=== PATIENT | female | born 1995 | race Caucasian/White ===

== ENCOUNTER 2016-09-28 10:36 | Emergency (ER) | payer BC ==
[~2016-09-28] VITALS: Ht 165.1 cm; Wt 50.0 kg
[2016-09-28] VITALS (8 sets, daily range): BP systolic 116–149; BP diastolic 72–88; PULSE 92–154; RESP 16–22; TEMP 98.2; O2SAT 98–100
--- NOTE | 2016-09-28 10:56 | PD ---
HPI Chief Complaint: Chest Pain Time Seen by Provider: 10:48 Travel History International Travel<30 days: No Contact w/Intl Traveler<30days: No Traveled to known affect area: No History of Present Illness HPI 20-year-old female here for evaluation of chest pain. The patient reports that the pain started yesterday afternoon, substernal, described as sharp/pressure- like, radiates to her bilateral shoulders, worse with inspiration. She also reports feeling palpitations. No history of cardiac disease. No family history of cardiac disease. She is a nonsmoker. No history of DVT or PE. No recent travel or immobilization. She does report history of anxiety in the past and has seen a psychologist which has helped. She denies fevers, chills, cough, or recent illness. No paresthesias or motor deficits. No suicidal or homicidal ideation. PFSH Past Medical History Anxiety: Yes Diminished Hearing: No Tetanus Vaccination: Unknown Influenza Vaccination: No ?: Not LMP: SEPTEMBER 20, 2016 Past Surgical History Surgical History: No Previous Surgery Social History Alcohol Use: No Tobacco Use: No Substance Use: No Allergies-Medications (Allergen,Severity, Reaction): Coded Allergies: No Known Allergies (Unverified , 09/28/16) Reported Meds & Prescriptions Reported Meds & Active Scripts Active No Active Prescriptions or Reported Medications Review of Systems Except as stated in HPI: all other systems reviewed are Neg Physical Exam Narrative GENERAL: Well-developed, well-nourished, tearful, no acute distress. SKIN: Focused skin assessment warm/dry. No rash. No pallor. HEAD: Atraumatic. Normocephalic. EYES: Pupils equal and round. No scleral icterus. No injection or drainage. ENT: Mucous membranes pink and moist. NECK: Trachea midline. No JVD. CARDIOVASCULAR: Tachycardic, rate 120, regular. Distal pulses brisk and equal bilaterally. RESPIRATORY: No accessory muscle use. Clear to auscultation. Breath sounds equal bilaterally. GASTROINTESTINAL: Abdomen soft, non-tender, nondistended. MUSCULOSKELETAL: No obvious deformities. No clubbing. No cyanosis. No edema. NEUROLOGICAL: Awake and alert. No obvious cranial nerve deficits. Motor grossly within normal limits. Normal speech. PSYCHIATRIC: Appropriate mood and affect; insight and judgment normal. Data Data Last Documented VS Vital Signs Date Time Temp Pulse Resp B/P Pulse Ox O2 Delivery O2 Flow Rate FiO2 09/28/16 12:00 96 16 100 Room Air 09/28/16 10:55 149/84 09/28/16 10:38 98.2 Orders Electrocardiogram (09/28/16 ) Basic Metabolic Panel (Bmp) (09/28/16 10:53) Ckmb (Isoenzyme) Profile (09/28/16 10:53) Complete Blood Count With Diff (09/28/16 10:53) D-Dimer (09/28/16 10:53) Magnesium (Mg) (09/28/16 10:53) Prothrombin Time / Inr (Pt) (09/28/16 10:53) Act Partial Throm Time (Ptt) (09/28/16 10:53) Troponin I (09/28/16 10:53) Chest, Single Ap (09/28/16 10:53) Ecg Monitoring (09/28/16 10:53) Iv Access Insert/Monitor (09/28/16 10:53) Oximetry (09/28/16 10:53) Sodium Chloride 0.9% Flush (Ns Flush) (09/28/16 11:00) Beta Hcg (Quant/Titer) (09/28/16 10:53) Sodium Chlor 0.9% 1000 Ml Inj (Ns 1000 M (09/28/16 11:00) Lorazepam Inj (Ativan Inj) (09/28/16 11:15) Urinalysis - C+S If Indicated (09/28/16 11:08) Drug Screen, Random Urine (09/28/16 11:12) Free Thyroxine (T4) (09/28/16 10:55) Thyroid Stimulating Hormone (09/28/16 10:55) Sodium Chlor 0.9% 1000 Ml Inj (Ns 1000 M (09/28/16 13:00) Electrocardiogram (09/28/16 11:02) Labs Laboratory Tests Test 09/28/16 09/28/16 10:55 12:00 White Blood Count 9.2 TH/MM3 Red Blood Count 4.88 MIL/MM3 Hemoglobin 14.6 GM/DL Hematocrit 42.6 % Mean Corpuscular Volume 87.1 FL Mean Corpuscular Hemoglobin 30.0 PG Mean Corpuscular Hemoglobin 34.4 % Concent Red Cell Distribution Width 12.1 % Platelet Count 318 TH/MM3 Mean Platelet Volume 9.2 FL Neutrophils (%) (Auto) 74.7 % Lymphocytes (%) (Auto) 15.4 % Monocytes (%) (Auto) 9.3 % Eosinophils (%) (Auto) 0.3 % Basophils (%) (Auto) 0.3 % Neutrophils # (Auto) 6.8 TH/MM3 Lymphocytes # (Auto) 1.4 TH/MM3 Monocytes # (Auto) 0.8 TH/MM3 Eosinophils # (Auto) 0.0 TH/MM3 Basophils # (Auto) 0.0 TH/MM3 CBC Comment DIFF FINAL Differential Comment Prothrombin Time 11.4 SEC Prothromb Time International 1.0 RATIO Ratio Activated Partial 27.5 SEC Thromboplast Time D-Dimer Quantitative (PE/DVT) LESS THAN 0.19 MG/L FEU Sodium Level 137 MEQ/L Potassium Level 3.3 MEQ/L Chloride Level 103 MEQ/L Carbon Dioxide Level 23.7 MEQ/L Anion Gap 10 MEQ/L Blood Urea Nitrogen 11 MG/DL Creatinine 0.71 MG/DL Estimat Glomerular Filtration 105 ML/MIN Rate Random Glucose 89 MG/DL Calcium Level 9.4 MG/DL Magnesium Level 2.2 MG/DL Total Creatine Kinase 37 U/L Troponin I LESS THAN 0.02 NG/ML Free Thyroxine 1.38 NG/DL Thyroid Stimulating Hormone 1.960 uIU/ML 3rd Gen Human Chorionic Gonadotropin, LESS THAN 1 Quant MIU/ML Urine Color YELLOW Urine Turbidity HAZY Urine pH 5.5 Urine Specific [place] 1.024 Urine Protein TRACE mg/dL Urine Glucose (UA) NEG mg/dL Urine Ketones 150 mg/dL Urine Occult Blood NEG Urine Nitrite NEG Urine Bilirubin NEG Urine Urobilinogen LESS THAN 2.0 MG/DL Urine Leukocyte Esterase SMALL Urine RBC 1 /hpf Urine WBC 3 /hpf Urine Squamous Epithelial 3 /hpf Cells Urine Bacteria FEW /hpf Urine Mucus MOD /lpf Microscopic Urinalysis Comment CULT NOT INDICATED Urine Opiates Screen NEG Urine Barbiturates Screen NEG Urine Amphetamines Screen NEG Urine Benzodiazepines Screen NEG Urine Cocaine Screen NEG Urine Cannabinoids Screen NEG MDM Medical Decision Making Medical Screen Exam Complete: Yes Emergency Medical Condition: Yes Interpretation(s) EKG: Sinus tachycardia, rate 120, normal axis, short [place] interval, no acute ischemic abnormality. Differential Diagnosis Atypical chest pain, musculoskeletal chest pain, ACS, PE, pneumonia, pneumothorax, anxiety, thyrotoxicosis, metabolic abnormality Narrative Course Initial vital signs show heart rate 138, blood pressure 139/88, pulse ox 100% on room air, oral temp of 98.2F. CBC is unremarkable. CMP is remarkable for potassium 3.3, otherwise unremarkable. Cardiac enzymes are negative. Beta hCG is negative. TSH is 1.96. Free T4 is 1.38. D-dimer is 0.19. UA shows 150 ketones, small leukocyte esterase, hazy urine, negative nitrites, 3 epithelial cells, few bacteria, not suggestive of UTI. The patient was given a dose of IV Ativan as well as 2 L of normal saline IV with significant improvement in heart rate to the 80s-90s. Patient's heart rate increases when I enter the exam room. Her symptoms are more consistent with anxiety. She states she feels well and has been tolerating a normal diet while in the emergency department. She would like to be discharged home. She is stable for discharge home with outpatient follow-up with a primary care physician this week. She was informed on when to return to the emergency department. She verbalizes understanding and agreement with plan. Diagnosis Primary Impression: Atypical chest pain Additional Impression: Palpitations Referrals: Primary Care Physician 3 days Additional Instructions: Follow-up with a primary care physician this week. Return to the emergency department for worsening symptoms or any other concerns. Scripts No Active Prescriptions or Reported Meds Disposition: 01 DISCHARGE HOME Condition: Stable Trevor Marks MD Sep 28, 2016 10:56
[2016-09-28] MEDS ORDERED: SODIUM CHLORIDE 0.9% FLUSH 10 ML FLUSH IVF PRN (11:00)
[2016-09-28] MEDS ORDERED: SODIUM CHLOR 0.9% 1000 ML INJ 1,000 ML IV ONE ×2 (11:00→13:00)
[2016-09-28 11:13] LABS: AUTOMATED NEUTROPHIL # 6.8 TH/MM3 (1.8-7.7); BASOPHIL % 0.3 % (0.0-2.0); EOSINOPHIL % 0.3 % (0.0-4.0); HEMATOCRIT 42.6 % (35.0-46.0); HEMO FLAGS DIFF FINAL; LYMPH % 15.4 % (9.0-44.0); LYMPHOCYTE # 1.4 TH/MM3 (1.0-4.8); MEAN CELL VOLUME 87.1 FL (80.0-100.0); MEAN CORPUSCULAR HGB CONC 34.4 % (32.0-36.0); MONO % 9.3 % (0.0-8.0); NEUT % 74.7 % (16.0-70.0); PLATELET COUNT 318 TH/MM3 (150-450); RED BLOOD COUNT 4.88 MIL/MM3 (4.00-5.30); RED CELL DISTRIBUTION WIDTH 12.1 % (11.6-17.2); WHITE BLOOD COUNT 9.2 TH/MM3 (4.0-11.0)
[2016-09-28] MEDS ORDERED: LORazepam 2 MG/ML VIAL IV PUSH ONE (11:15)
[2016-09-28 11:27] LABS: APTT (PATIENT) 27.5 SEC (24.3-30.1); PROTHROMBIN TIME - PATIENT 11.4 SEC (9.8-11.6)
--- NOTE | 2016-09-28 11:27 | RADRPT ---
EXAM DATE/TIME: 09/28/2016 10:54 [facility] COMPARISON: No previous studies available for comparison. INDICATIONS : Chest pain in middle of chest. MEDICAL HISTORY : None. SURGICAL HISTORY : None. ENCOUNTER: Initial ACUITY: 2 days PAIN SCORE: 10/10 LOCATION: Bilateral chest FINDINGS: A single view of the chest demonstrates the lungs to be symmetrically aerated without evidence of mas s, infiltrate or effusion. The cardiomediastinal contours are unremarkable. Osseous structures are intact. CONCLUSION: No acute disease. Prosper Marino MD FACR on September 28, 2016 at 11:25 Board Certified Radiologist. This report was verified electronically.
[2016-09-28 11:35] LABS: ANION GAP 10 MEQ/L (5-15); BICARBONATE 23.7 MEQ/L (21.0-32.0); BLOOD UREA NITROGEN 11 MG/DL (7-18); CHLORIDE 103 MEQ/L (98-107); GLOMERULAR FILTRATION RATE 105 ML/MIN (>89); MAGNESIUM 2.2 MG/DL (1.5-2.5); POTASSIUM 3.3 MEQ/L (3.5-5.1); SODIUM (NA) 137 MEQ/L (136-145)
[2016-09-28 11:45] LABS: BETA HCG QUANT LESS THAN 1 MIU/ML (0-5); FREE T4 1.38 NG/DL (0.76-1.46)
[2016-09-28 11:48] LABS: CREATINE KINASE 37 U/L (26-192)
[2016-09-28 12:36] LABS: BACTERIA, URINE FEW /hpf; BLOOD, URINE NEG (NEG); COMMENT (UR) CULT NOT INDICATED; CULTURE IF INDICATED CULT NOT INDICATED; GLUCOSE,URINE NEG (NEG); KETONE, URINE 150 mg/dL (NEG); MUCUS URINE MOD /lpf (OCC); NITRITE,URINE NEG (NEG); PH, URINE 5.5 (5.0-8.5); SQUAMOUS EPITHELIAL CELL URINE 3 /hpf (0-5); URINE COLOR YELLOW (YELLW/STRAW)
[2016-09-28 12:50] LABS: AMPHETAMINE, URINE NEG (NEG); BARBITURATES, URINE NEG (NEG); COCAINE, URINE NEG (NEG)
--- NOTE | 2016-09-29 11:23 | EKG ---
Date Performed: 09/28/2016 Time Performed: 10:54:18 PTAGE: 20 years EKG: SINUS TACHYCARDIA WITH SHORT [place] INTERVAL NONSPECIFIC ST & T-WAVE ABNORMALITY ABNORMAL RHYTH M ECG NO PREVIOUS TRACING DOCTOR: Newton Ingram Interpretating Date/Time 09/29/2016 11:21:24
--- NOTE | 2016-09-29 11:23 | EKG ---
Date Performed: 09/28/2016 Time Performed: 11:02:57 PTAGE: 20 years EKG: SINUS TACHYCARDIA, POSSIBLE ATRIAL FLUTTER NONSPECIFIC ST & T-WAVE ABNORMALITY ABNORMAL RHY THM ECG INTERPRETATION BASED ON A DEFAULT AGE OF 40 YEARS PREVIOUS TRACING : 09/28/2016 10.54 DOCTOR: Newton Ingram Interpretating Date/Time 09/29/2016 11:21:17
== END 2016-09-28 14:30 | disposition home or self-care (01) ==
LOC: NEPA 10:36
DX: R07.89 Other chest pain (principal); R00.2 Palpitations; R00.0 Tachycardia, unspecified
CPT/HCPCS: 71010; 80048; 80307; 81001; 82550; 83735; 84439; 84443; 84484; 84702; 85025; 85379; 85610; 85730; 93005; 96361; 96374; 99285; J2060; J7030